=== PATIENT | male | born 1960 | race Caucasian/White ===

== ENCOUNTER 2017-02-24 16:05 | Emergency (ER) | payer OTHER ==
[~2017-02-24] VITALS: Ht 165.1 cm; Wt 77.1 kg
[2017-02-24 16:05] VITALS: BP_SYST 146
[2017-02-24] MEDS ORDERED: KETOROLAC TROMETHAMINE 60 MG/2 ML VIAL IM ONE (16:30)
[2017-02-24] MEDS ORDERED: DEXAMETHASONE SOD PHOSPHATE 10 MG/ML VIAL IM ONE (16:30)
[2017-02-24 18:25] VITALS: BP_SYST 121
== END 2017-02-24 18:25 | disposition home or self-care (01) ==
LOC: SED 16:05 → EDBD 16:05 → SED 18:25
DX: S33.5XXA Sprain of ligaments of lumbar spine, initial encounter (principal); S09.90XA Unspecified injury of head, initial encounter; R51 Headache; Z71.6 Tobacco abuse counseling; W01.0XXA Fall on same level from slipping, tripping and stumbling without subsequent striking against object, initial encounter; Y93.01 Activity, walking, marching and hiking; Y92.89 Other specified places as the place of occurrence of the external cause; Y99.8 Other external cause status
CPT/HCPCS: 70450; 72131; 96372; 99284; J1100; J1885